=== PATIENT | male | born 1940 | race Caucasian/White ===

== ENCOUNTER → 2018-03-17 | Outpatient (CLI) | payer MEDICARE, OTHER ==
[2018-03-17 16:09] LABS: HEMOGLOBIN 13.8 g/dl (13.5-18.0); MEAN CELL VOLUME 90 fl (80.0-100.0); MEAN CORPUSCULAR HEMOGLOBIN 30 pg (27.0-31.0); MEAN CORPUSCULAR HGB CONC 34 g/dl (33.0-37.0); MEAN PLATELET VOLUME 10.7 fl (7.4-10.4); PLATELET COUNT 231 K/mm3 (130-400); RED BLOOD COUNT 4.55 M/mm3 (4.20-5.60); REDCELL DISTRIBUTION WIDTH-CV 12.9 % (11.5-14.5)
[2018-03-17 16:18] LABS: ANION GAP 9 mmol/L (7-16); BLOOD UREA NITROGEN 17 mg/dL (9-20); CALCIUM 9.6 mg/dL (8.4-10.2); CARBON DIOXIDE 29 mmol/L (22-30); CHLORIDE 101 mmol/L (98-107); CREATININE, serum 1.23 mg/dL (0.66-1.25); GLUCOSE 87 mg/dL (74-106); POTASSIUM 3.8 mmol/L (3.4-5.0); SODIUM 139 mmol/L (137-145)
[2018-03-17 16:38] LABS: TROPONIN-I < 0.012 ng/mL (0.000-0.034)
== END ==
LOC: COL.LAB 15:43
PROVIDERS: Internal Medicine Interventional Cardiology
DX: R07.9 Chest pain, unspecified (principal); Z95.0 Presence of cardiac pacemaker

== ENCOUNTER 2018-04-05 11:17 | Day surgery (SDC) | payer MEDICARE, OTHER ==
[~2018-04-05] VITALS: Ht 190.5 cm; Wt 99.0 kg
[2018-04-05] MEDS ORDERED: PLENDIL10 MG PO (11:54)
[2018-04-05] MEDS ORDERED: LIPITOR 40MG TA40 MG PO (11:55)
[2018-04-05] MEDS ORDERED: ASPIRIN 81M81 MG/TA2 PO (11:56)
[2018-04-05] MEDS ORDERED: BYSTOLIC5 MG PO (11:56)
[2018-04-05] MEDS ORDERED: ELIQUIS 5MG PO (11:56)
[2018-04-05] MEDS ORDERED: ZANTAC 150MG T150 MG PO (11:57)
[2018-04-05 12:00] VITALS: BP 132/84; PULSE 60
[2018-04-05] MEDS ORDERED: REFRESH 1 ML1 ML OP (12:00)
[2018-04-05 13:02] LABS: INR 1.4 (0.8-3.0); PROTHROMBIN TIME 15.9 SECONDS (9.7-12.8)
[2018-04-05 13:04] LABS: POTASSIUM 4.1 mmol/L (3.4-5.0)
[2018-04-05] MEDS ORDERED: AVASTIN 100M25 MG/ML IV (13:06)
[2018-04-05 13:39] LABS: THYROID STIMULATING HORMONE 2.28 uIU/mL (0.465-4.680)
[2018-04-05 14:15] VITALS: BP 118/84; PULSE 60
[2018-04-05 14:18] VITALS: BP 118/84; PULSE 61
[2018-04-05 14:30] VITALS: BP 117/76; PULSE 60
[2018-04-05 14:45] VITALS: BP 118/77; PULSE 59
[2018-04-05 15:15] VITALS: BP 125/78; PULSE 61
== END 2018-04-05 15:45 | disposition home or self-care (01) ==
LOC: COL.CAR 11:17
PROVIDERS: Internal Medicine Interventional Cardiology
DX: I48.0 Paroxysmal atrial fibrillation (principal); I10 Essential (primary) hypertension; E78.5 Hyperlipidemia, unspecified; R55 Syncope and collapse; Z95.0 Presence of cardiac pacemaker; Z79.01 Long term (current) use of anticoagulants; Z88.8 Allergy status to other drugs, medicaments and biological substances; Z82.49 Family history of ischemic heart disease and other diseases of the circulatory system; Z82.3 Family history of stroke
CPT/HCPCS: J2250; J3010; J7030

== ENCOUNTER 2018-09-16 13:18 | Inpatient (IN) | payer MEDICARE, OTHER ==
[2018-09-16] VITALS (10 sets, daily range): BP systolic 108–174; BP diastolic 79–99; PULSE 56–80; TEMP 97.9–98.4
[~2018-09-16] VITALS: Ht 190.7 cm; Wt 99.0 kg
[~2018-09-16 13:18] MED LIST: ASPIRIN 81M81 MG/TA2 PO; AVASTIN 100M25 MG/ML IV; BYSTOLIC5 MG PO; ELIQUIS 5MG PO; LIPITOR 40MG TA40 MG PO; PLENDIL10 MG PO; REFRESH 1 ML1 ML OP; ZANTAC 150MG T150 MG PO
[2018-09-16] MEDS ORDERED: ELIQUIS 2.5 PO (14:14)
[2018-09-16 14:17] LABS: POTASSIUM 4.1 mmol/L (3.4-5.0)
[2018-09-16 14:19] LABS: INR 1.3 (0.8-3.0); PROTHROMBIN TIME 14.7 SECONDS (9.7-12.8)
[2018-09-16 14:52] LABS: THYROID STIMULATING HORMONE 2.82 uIU/mL (0.465-4.680)
--- NOTE | 2018-09-16 15:24 | NUR ---
ALL MEDICATIONS GIVEN WITH VORB WITH MD. SEE MERGE FOR ALL MEDICATION ADMIN TIMES. SEE MERGE FOR ALL RASS ASSESSMENTS DURING AND POST PROCEDURE.
--- NOTE | 2018-09-16 15:43 | NUR ---
RECEIVED REPORT FROM TIRE ROOM SUPERVISOR
--- NOTE | 2018-09-16 17:50 | NUR ---
Pt sitting in bed, eating dinner. Pt denies pain or shortness of breath. Breathing evend and unlabored. Pt on post op vitals, vitals remain stable. Pt denies any needs.
[2018-09-17] VITALS (13 sets, daily range): BP systolic 111–148; BP diastolic 66–92; PULSE 58–69; TEMP 97.6–98.3
--- NOTE | 2018-09-17 06:11 | NUR ---
PT HAD UNEVENTFUL NOC. NO C/O PAIN. APPEARED TO HAVE RESTED WELL OVER NOC. NO C/O CHEST PAIN OR PALPATIONS. STATED HE WAS SUPPRISED HIS B/P WAS SO GOOD THIS HS THAT IT USUALLY RUNS HIGHER IN THE EVENING. NO OTHER ISSUES OR CONSERNS VOICED.
--- NOTE | 2018-09-17 06:40 | NUR ---
Received report from Ira NATION. Pt lying in bed, breathing even and unlabored. Let pt know he needed to remain NPO for cardioversion. Denies any needs.
[2018-09-17 06:46] LABS: CALCIUM 9.1 mg/dL (8.4-10.2); CREATININE, serum 1.18 (0.66-1.25); POTASSIUM 4.3 mmol/L (3.4-5.0)
--- NOTE | 2018-09-17 09:24 | NUR ---
Pt sitting in bed, breathing even and unlabored. Denies any shortness of breath or pain. Breath sounds clear. Completed morning assessment. Pt signed consent for cardioversion today. Pt denies any questions or concerns.
--- NOTE | 2018-09-17 10:30 | NUR ---
Pt taken to ICU for cardioversion.
--- NOTE | 2018-09-17 11:16 | NUR ---
Cardioversion performed by Dr Manning and anesthesia. Post assessment complete and pt stable to release back to medical floor at this time.
--- NOTE | 2018-09-17 11:30 | NUR ---
Pt back on floor from cardioversion. Pt awake and alert. Denies any pain or shortness of breath at this time. Post op vitals started.
--- NOTE | 2018-09-17 11:37 | NUR ---
Provided spiritual care, visited and listened to the patient. I prayed with him before leaving.
--- NOTE | 2018-09-17 16:00 | NUR ---
Plan: Patient plans to return home with Mary as care support. Assessment: Patient reports that he resides in [place] with his . Patient reports that he is independent and does not require any additional DME. Patient reports having a Pacemaker and phone like device that reads meter. Patient reports that his PCP is Dr. Membreno in [place]. Patient reports obtaining medications from [place]. Patient denies having a DPOA and declined setting one up. Patient reports that his will transport him home. Denies care concerns. Patient denied needing any home health services. Action: No additonal concerns identified. SW educated patient on resources.
--- NOTE | 2018-09-17 17:15 | NUR ---
Pt sitting in chair. Denies any pain or shortness of breath. Pt has ordered dinner. Call light in reach.
--- NOTE | 2018-09-17 18:46 | NUR ---
Gave hand off report to Ira NATION.
[2018-09-18 04:02] VITALS: BP 110/65; PULSE 64; TEMP 97.6
--- NOTE | 2018-09-18 05:05 | NUR ---
PT HAD UNEVENTFUL NOC. PT VITALS REMAINED WNL OVERNIGHT. NO C/O PAIN OR N/V/D. NO NOTED PALPATIONS OR C/O CHEST PAIN THIS SHIFT.
[2018-09-18 07:17] VITALS: BP 125/81; PULSE 66; TEMP 98.4
[2018-09-18 07:19] LABS: CALCIUM 9.3 mg/dL (8.4-10.2); CREATININE, serum 1.26 (0.66-1.25); POTASSIUM 4.2 mmol/L (3.4-5.0)
--- NOTE | 2018-09-18 07:33 | NUR ---
Pt continues to sleep soundly and does not wake when staff enters room. Will monitor.
--- NOTE | 2018-09-18 09:03 | NUR ---
Pt is awake and A/Ox4, ambulating around room. He denies any pain or discomfort. Saline lock to left AC is free of complications. Heart remains irregular. Denies any needs, will monitor.
[2018-09-18 11:09] VITALS: BP 134/83; PULSE 63; TEMP 97.9
[2018-09-18 15:10] VITALS: BP 145/85; PULSE 61; TEMP 98.5
--- NOTE | 2018-09-18 19:25 | NUR ---
Pt resting in recliner watching tv. Assessment completed- lungs clear, abdominal sounds active x4, pulses +3, alert and oriented x4, independent. Denies pain. IV site to left AC flushed, no redness/edema. Given evening medications. No further needs at this time.
[2018-09-18 20:18] VITALS: BP 134/69; PULSE 67; TEMP 98.4
--- NOTE | 2018-09-18 21:00 | NUR ---
Attempted pacemaker interrogation, unable to get iPad to connect to the internet. Will attempt again later.
[2018-09-19 00:53] VITALS: BP 115/77; PULSE 61; TEMP 98.2
--- NOTE | 2018-09-19 05:04 | NUR ---
Pt slept for most of the night. VSS, no reports of pain. Awaiting phone call from IT to help fix pacemaker interrogation iPad. Unable to do at this time.
[2018-09-19 05:14] VITALS: BP 144/84; PULSE 64; TEMP 97.7
--- NOTE | 2018-09-19 07:05 | NUR ---
Report given to RIOS Bower. Patient resting in bed. No needs at this time.
[2018-09-19 07:48] VITALS: BP 144/83; PULSE 59; TEMP 98
--- NOTE | 2018-09-19 09:07 | NUR ---
Assessment complete.patient awake,a/ox3.denies chest pain or palpitations at this time.LSCTA.QTc WNL.EKG showed-AV paced.cardioversion cancelled.patient updated on findings.no other needs voiced.will continue to monitor.call light in reach
[2018-09-19 11:29] VITALS: BP 132/77; PULSE 99; TEMP 97.6
[2018-09-19] MEDS ORDERED: BETAPACE AF160 MG PO (11:30)
--- NOTE | 2018-09-19 12:03 | NUR ---
PT discharge home at this time.all discharge instructions reviewed.IV and telemetry discontinued.all questions answered.all paperwork signed.all belongings taken.staff escorted patient out
== END 2018-09-19 12:38 | disposition home or self-care (01) | DRG 310 ==
LOC: COL.CAR 13:18 → MEDICAL 15:15 → COL.CAR 15:15 → MEDICAL 16:52 → COL.CAR 09-18 16:52 → MEDICAL 09-18 16:52
PROVIDERS: ADMIT Internal Medicine Interventional Cardiology
DX: I48.0 Paroxysmal atrial fibrillation (principal); Z79.01 Long term (current) use of anticoagulants; Z95.0 Presence of cardiac pacemaker; I10 Essential (primary) hypertension; E78.5 Hyperlipidemia, unspecified; Z88.8 Allergy status to other drugs, medicaments and biological substances; Z87.891 Personal history of nicotine dependence
CPT/HCPCS: J1644; J2250; J2704; J3010; J7030